=== PATIENT | female | born 1955 | race Caucasian/White ===

== ENCOUNTER → 2017-06-15 | Outpatient (CLI) | payer OTHER ==
[~2017-06-15] MED LIST: ALLEVE; KET10 PO; LOR5/325 PO
--- NOTE | 2017-06-15 13:49 | RADIOLOGY IMAGING REPORT ---
FACILITY: [facility] PATIENT NAME: NATACHA INTERIANO : [id number] MR: [id number] V: [id number] EXAM DATE: [id number] ORDERING PHYSICIAN: DEVIN SALAS TECHNOLOGIST: Garima Girard PROCEDURE:BILATERAL DIGITAL SCREENING MAMMOGRAM WITH CAD ASSISTED INTERPRETATION & 3D TOMOSYNTHESIS COMPARISON:Prior mammograms 10/04/07, 09/30/06, 12/24/04, 05/29/03. INDICATIONS:SCREENING FINDINGS: Moderately dense heterogeneous fibroglandular tissue is seen throughout the breasts. The parenchymal pattern has remained stable allowing for difference in mammographic technique & patient positioning. There is no evidence of malignant appearing mass, malignant appearing calcifications or other secondary sign of malignancy in either breast. DIAGNOSTIC CATEGORY 1--NEGATIVE. RECOMMENDATIONS: ROUTINE MAMMOGRAM AND CLINICAL EVALUATION. IMPRESSION: BIRADS 1: Negative No significant abnormality is seen. Dictated by: Jailyn Kim M.D. on 06/15/2017 at 10:00 Transcribed by: FIX on 06/15/2017 at 10:14 Approved by: Jailyn Kim M.D. on 06/15/2017 at 13:48 [facility]
== END ==
LOC: MAMO 00:57
PROVIDERS: ATTEND Family Medicine
DX: Z12.31 Encounter for screening mammogram for malignant neoplasm of breast (principal)
CPT/HCPCS: 77063; 77067

== ENCOUNTER → 2018-09-19 | Outpatient (CLI) | payer MEDICARE, OTHER ==
[~2018-09-19] MED LIST changes: +ALBU8.5H IH; +OMEP40CA48 PO
[2018-09-19 11:42] LABS: PLATELET COUNT, AUTOMATED 286 K/uL (150-450)
[2018-09-19 12:27] LABS: LDL CHOLESTEROL 156 mg/dl
== END ==
LOC: LAB 11:04
PROVIDERS: ATTEND Emergency Medicine
DX: J45.909 Unspecified asthma, uncomplicated (principal); E55.9 Vitamin D deficiency, unspecified; Z83.49 Family history of other endocrine, nutritional and metabolic diseases
CPT/HCPCS: 36415; 82306; 82607; 84443; 85025; G0472; 82040; 82247; 82310; 82374; 82435; 82465; 82565; 82947; 83718; 84075; 84132; 84155; 84295; 84450; 84460; 84478; 84520; 86803